=== PATIENT | male | born 1985 | race African-American/Black ===

== ENCOUNTER 2021-05-23 11:18 | Emergency (ER) | payer OTHER ==
[~2021-05-23] VITALS: Ht 185.4 cm; Wt 65.9 kg
[2021-05-23 11:31] VITALS: TEMP 98.3
[2021-05-23 12:09] LABS: BASO % 0.3 % (0.0-2.0); EOS % 0.2 % (0-4.0); GRAN # 7.8 K/mm3 (1.4-6.5); GRAN % 70.3 % (42.2-75.2); LYMPH # 2.1 K/mm3 (1.2-3.4); LYMPH % 19.2 % (20.0-51.0); MEAN CELL VOLUME 80 fl (80.0-100.0); MEAN CORPUSCULAR HEMOGLOBIN 29 pg (27.0-31.0); MEAN CORPUSCULAR HGB CONC 37 g/dl (33.0-37.0); MEAN PLATELET VOLUME 8.8 fl (7.4-10.4); MONO # 1.1 K/mm3 (0.1-0.6); MONO % 9.6 % (1.7-9.3); PLATELET COUNT 250 K/mm3 (130-400); RED BLOOD COUNT 4.09 M/mm3 (4.20-5.60); REDCELL DISTRIBUTION WIDTH-CV 15.3 % (11.5-14.5)
[2021-05-23 12:10] LABS: HEMATOCRIT 32.8 % (42.0-52.0)
[2021-05-23 12:15] LABS: RETIC # 0.17 M/mm3 (0.02-0.16); RETIC % 4.1 % (0.5-3.52)
[2021-05-23 12:22] LABS: ALANINE AMINOTRANSFERASE 13 U/L (0-55); ALBUMIN 4.8 gm/dL (3.5-5.0); ALKALINE PHOSPHATASE 51 U/L (40-150); ANION GAP 8 mmol/L (7-16); AST,SGOT 21 U/L (5-34); BILIRUBIN,TOTAL 3.1 mg/dL (0.2-1.2); CARBON DIOXIDE 19 mmol/L (22-29); CHLORIDE 110 mmol/L (98-107); CREATININE, serum 0.83 mg/dL (0.72-1.25); GLUCOSE 87 mg/dL (70-99); POTASSIUM 4.5 mmol/L (3.5-4.5); SODIUM 137 mmol/L (136-145); TOTAL PROTEIN 7.9 gm/dL (6.2-8.1)
[2021-05-23 12:33] LABS: TROPONIN-I < 0.010 ng/mL (0.00-0.033)
[2021-05-23 12:54] LABS: BLOOD UREA NITROGEN 10 mg/dL (9-21)
[2021-05-23 14:34] VITALS: BP 122/89; PULSE 65
== END 2021-05-23 14:36 | disposition home or self-care (01) ==
LOC: COL.ER 11:18
PROVIDERS: Physician Assistant
DX: D57.00 Hb-SS disease with crisis, unspecified (principal); F17.290 Nicotine dependence, other tobacco product, uncomplicated
CPT/HCPCS: J2270; J7030